=== PATIENT | male | born 1955 | race Caucasian/White ===

== ENCOUNTER 2020-07-28 17:45 | Emergency (ER) | payer OTHER | END 2020-07-28 18:56 | LOC: ER 17:45 | DX: R45.1 Restlessness and agitation (principal); Z20.822 Contact with and (suspected) exposure to COVID-19; R44.3 Hallucinations, unspecified ==

== ENCOUNTER 2020-07-28 19:53 | Inpatient (IN) | payer OTHER, MEDICAID ==
[~2020-07-28] VITALS: Ht 175.3 cm; Wt 82.3 kg
--- NOTE | ~2020-07-28 | EEG ---
[facility] [place] [address] ELECTROENCEPHALOGRAM Name: MANUELA PASCAL Room #: 528A-A ADM IN M.R.#: [id number] Admission: 07/28/20 Attend Phys: Rajesh Rome Discharge: Date of : 55 Report #: [id number] THIS REPORT FOR: //name// DOC #: [id number] Dimitri Colby MD DATE OF SERVICE: 07/31/2020 This patient is being evaluated for the possibility of seizure. EEG was done by placing the electrode by standard 10-20 system of electrode placement. Both referential and sequential montages were used for recording. Background activity in this patient's EEG is about 7 Hz and 30 microvolt. The patient went to sleep that is associated with bilateral slowing and vertex sharp waves. Throughout the record, no active epileptiform activity was noticed. IMPRESSION: This patient's EEG is intermixed with theta range slowing on both sides. That is a nonspecific finding which can occur with encephalopathy, effect of psychotropic medication, dementia. No active seizure activity was noticed. Thank you very much for this referral. Dimitri Colby MD PK/NOO By: [id number] [id number] Dimitri Colby MD /nt
--- NOTE | ~2020-07-28 | HC ---
[facility] [place] [address] CONSULTATION Name: MANUELA PASCAL Room #: 528A-A ADM IN M.R.#: [id number] Admission: 07/28/20 Attend Phys: Chad Charles DO Discharge: Date of : 55 Report #: [id number] THIS REPORT FOR: cc: FAM - Family physician unknown FAM - Family physician unknown Dimitri Colby MD ~ DOC #: [id number] Dimitri Colby MD DATE OF SERVICE: 08/03/2020 HISTORY OF PRESENT ILLNESS: This is a 65-year-old male patient whose consultation was requested by Dr. Charles. The patient is in the behavioral psychiatric unit. He does not provide much history. I talked to Dr. Charles and got some history and he nicely updated me on the patient's history. Then I called the patient's daughter and talked to the nurse also. The daughter says that this patient was diagnosed with an invasive tumor in November. It was apparently a lung tumor. He was given a limited life expectancy for a few months and was recommended chemotherapy and radiation and he did not get any. Apparently, a PET scan was going to be done to see where the metastasis is, but it was never done. This patient started having seizures around that time. According to the daughter, first it was small seizure and then he started having multiple seizures. She said that he was admitted to [facility], but they did not do any imaging studies of the brain. She is pretty adamant that he never had any imaging study of the brain, which would be unusual, but she is pretty sure about that and was pretty adamant and certain that was the case. He has a history of alcohol. He has not drank alcohol daily for some time, but he drinks heavy amount of alcohol on Sunday and Sunday. Apparently, he also started losing memory, some time last few months. REVIEW OF SYSTEMS: I do not have any record in this patient, but he is on Keppra. He apparently had another seizure, the description of the seizure is poor. At one time, he was given thiamine because of thiamine deficiency, but that did not do anything to his memory. He apparently has a lung carcinoma. He has an oncologist, but has not followed his recommendation for chemotherapy and radiation therapy. He has a significant behavioral problem. REVIEW OF SYSTEMS: A 14-point review of system was carried out and this is a relevant 14-point review of systems. PAST MEDICAL HISTORY: Positive for lung carcinoma. FAMILY HISTORY: Unremarkable. SOCIAL HISTORY: He has a heavy history of smoking. PHYSICAL EXAMINATION: His examination was limited because he did not cooperate, [facility] [address] [place] [address] CONSULTATION Name: GWYNMANUELA Room #: 528A-A [facility] IN M.R.#: [id number] Admission: 07/28/20 Attend Phys: Chad Charles DO Discharge: Date of : 55 Report #: [id number] first he wanted me to sit down before he does anything for me, when I did, but he still did not cooperate. Ultimately, he was able to tell me that it is July. He did not know what hospital he is in and could not name the president. Cranial nerve and neuromuscular examination was attempted. His cooperation was very poor, but I do not see any focality there. He did allow me to listen to his heart which looks unremarkable. He does not have any respiratory difficulty. His blood pressure is 141/81, respirations 20, pulse is 124, temperature is 98.9. LABORATORY DATA: His CBC is normal. His last sodium was normal, so was the patient's B12 and TSH. IMPRESSION AND PLAN: By history, the patient is having recurrent seizure. Description of the seizures is poor, but he has been tried on Keppra. I discussed with family that they need to decide how aggressive they want to be in light of his cancer. They want an MRI of the brain to see if there is a metastasis there. If metastasis is there, I think they are going to be inclined towards palliative care rather than the treatment. If metastasis is not there, then they may think about doing some treatment. I think that can be done as I discussed with you. I think we can add Depekote to this patient and closely monitor the platelets and the liver function. Once Depakote level becomes therapeutic, we may give a trial with tapering off Keppra. I will suggest starting the patient on Depekote 500 mg p.o. b.i.d. and building it up depending upon his tolerance and depending upon his blood workup. The daughter is aware of this and daughter has been consulted on virtually everything. Thank you very much for this referral. I spent about 50 minutes of time taking care of this patient today and majority was spent counseling and coordinating including talking to the daughter, psychiatrist, nurses, and reviewing the patient's records. MD MIGUEL Mao/WAQAS By: 0055 Dimitri Colby MD /nestor
--- NOTE | 2020-07-29 01:42 | NUR ---
PT ARRIVED ON UNIT AT APPROX 1850 HRS 07/28/20. WHEN THIS NURSE MADE CONTACT WITH PATIENT HE WAS IN THE DAY ROOM PUTTING THE TV REMOTE IN HIS PANTS. THIS NURSE ASKED THE PT FOR THE REMOTE AND HE BECAME AGITATED. THE REMOTE HAD TO BE TAKEN FROM HIM AND HIS AGITATION ESCALATED. JUST AFTER THIS INCIDENT IT WAS DISCOVERED THAT PT HAD ARRIVED ON THE UNIT WITH HIS CELL PHONE. MALE PEER SAW THAT PT HAD A PHONE AND TRIED TO TAKE IT FROM HIM. BOTH PT'S BEGAN YELLING AND ESCALATING AND SECURITY WAS CALLED. SECURITY ARRIVED AND ORDER RECEIVED FROM DR. LOZANO FOR 15 MG GEODON IM STAT. SECURITY ARRIVED AND PT AGREED TO WALK TO HIS ROOM FOR THE INJECTION. HE LAID DOWN ON HIS BED AND ALLOWED THIS NURSE TO GIVE IM INJECTION TO RIGHT GLUT WITHOUT INCIDENT. PATIENT STAYED IN HIS BED APPROX 10 MIN THEN CAME BACK OUT TO HALLWAY/DAYROOM. SECURITY WAS ABLE TO REMOVE PT'S WALLET FROM HIS BACK WALLET AND IT WAS PLACED WITH HIS PERSONAL ITEMS AND CELL PHONE UNTIL WHICH TIME ITEMS CAN BE CATALOGED. THIS NURSE UNABLE TO DO COMPLETE ADMISSION ASSESSMENT OF PT DUE TO COGNITIVE LIMITATIONS AND PT UNWILLINGNESS TO PARTICIPATE. NO ADVERSE REACTIONS TO GEODON IM INJECTION. PATIENT EVENTUALLY RETIRED TO HIS BED AND HAS SLEPT SINCE THAT TIME. WILL CONTINUE TO MONITOR AND FOLLOW PLAN OF CARE. Q 12 MIN SAFETY CHECKS PER PROTOCOL.
[2020-07-29 07:59] LABS: CHOLESTEROL 208 mg/dL (<200); HDL CHOLESTEROL 56 mg/dL (>40); LDL CHOLESTEROL 127 mg/dL (<100); TC:HDL 3.7 Ratio (Not establshd); TRIGLYCERIDE 128 mg/dL (<150); VLDL 26 mg/dL (<40)
[2020-07-29 08:50] VITALS: BP 121/103
--- NOTE | 2020-07-29 11:25 | NUR ---
Nutrition: New admit [facility] with dementia, behaviorial disturbance. Has been combative per nsg, required Zoran harman noc. RD did not interview due to RN warning of combativeness. No ht/wt-requested as able. Pt consumed 90% of breakfast and then some. Nsg is requesting double portions-will order. 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 On thiamine, HCTZ. Place as low risk with interventions in place.
--- NOTE | 2020-07-29 12:59 | NUR ---
ANGRY TENSE FACIAL EXPRESSION ON INITIAL APPROACH THIS AM-BUT DID EAT LARGE BREAKFAST AND WAS COMPLIENT WITH TAKING AM MEDS-GAIT IS STEADY WITHOUT AWSSISTVE DEVICES. INCREASED LABILITY SHIFT PROGRESSES-FREQUENT EPISODES OF LOUD VERBAL OUTBURSTS AND SWEARING UPSET THAT HE DOESN'T HAVE TV IN ROOM-DELSUIONAL STATING THAT ALL THE PEOPLE HERE ARE HIS COWORKERS AND WE ARE AT "[facility]" DENIES C/O PAIN/DISCOMFORT-DENIES SI/SH.NO SEIZURE ACTIVITY NOTED OR REPORTED
--- NOTE | 2020-07-29 15:56 | NUR ---
BECAME INCREASINGLY AGITATED AT APPROX 1230-SWEARING CONSTANTLY AND BEGAN TO YELL LOUDLY AND POUND FIST ON DOOR AND WALL-UNABLE TO BE VERBALLY REDIRECTED-CONFUSED STATING "I AM SUPPOSED TO BE AT A BIRTH[facility] [employer] [facility]-GET MY DRIVERS LICENSE. RAISED FIST TO MALE PEER-GEODON 10MG GIVEN IM IN RIGHT DELTOID WITH NO PHYSICAL RESISTANCE-YELLING PROFANITY LOUDLY IN DAYROOM.
--- NOTE | 2020-07-29 17:33 | NUR ---
VAISHNAVI and Dr. Vaughan met with the Pt in Dr. Vaughan's office. Pt presented confused and unable to answer any questions. Pt's stap daughter, Hope [phone], was called. Hope was able to provide a brief history on the Pt. Hope confirmed the Pt does not have a DPOA. The Pt has been at [facility] for 2 months. Prior to that Pt lived with Hope for about 11 months. [facility]. While hospitalized Pt had behavioral issues. 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 Dr. Vaughan informed Pt no longer had the capacity to assign a DPOA and would benefit from a guardian. Hope was aware a guardian was needed, and stated she was working on this. VAISHNAVI will continue to follow
--- NOTE | 2020-07-29 17:47 | NUR ---
Vaishnavi was able to talk to ALONZO Melton at [facility] [phone]. Linh stated hermilo Pt has been with them for 2 months. Pt has been having behaviors since placement. Pt yells, curses, throws things, is exit seeking, and not sleeping at night. Pt has destroyed his apartment when upset. Linh reported the Pt was at [facility] for more than two weeks. Linh reported initiall [facility] was not going to keep the Pt, but the Pt had a sizure while there and this is when he was admitted. Linh stated they have not given notice on the Pt yet. Linh requested updates. VAISHNAVI will continue to follow
--- NOTE | 2020-07-29 18:43 | NUR ---
HAS REMAINED RESTLESS,PACING -AT DESK FREQUENTLY WITH VARIOUS REQUESTS FOR HIS CAR KEYS,WALLET,DRIVERS LICENSE,ETC-BEGINS TO SWEAR LOUDLY WITH ATTEMPTS TO REORIENT/REDIRECT.MULTIPLE ATTEMPTS MADE TO ASSIST IN PLACING A PHONE CALL WHICH WAS NO LONGER IN SERVICE STATING IT WAS HIS PARENTS NUMBER-DID TAKE RISPERDAL 1 MG PO AT 1500
[2020-07-29 19:37] VITALS: BP 136/89
--- NOTE | 2020-07-29 20:53 | H ---
[facility] [place] [address] [place] [address] HISTORY AND PHYSICAL Name: MANUELA PASCAL Room #: 528A-A ADM IN M.R.#: [id number] Admission: 07/28/20 Attend Phys: Fiorella Charles DO Discharge: Date of : 55 Report #: [id number] THIS REPORT FOR: cc: FAM - Family physician unknown FAM - Family physician unknown Fiorella Charles DO ~ DOC #: [id number] FIORELLA Charles DO DATE OF SERVICE: 07/29/2020 INPATIENT PSYCHIATRIC EVALUATION ATTENDING PSYCHIATRIST: Fiorella Charles. MEDICAL CONSULTANTS: Radha Martínez and Jonathan Mckenna M.D. and his hospitalist team. REASON FOR ADMISSION: Dementia with behavioral disturbance. CHIEF COMPLAINT: Unspecified. HISTORY OF PRESENT ILLNESS: This is a 65-year-old male sent to us from [facility]. It looks like he was briefly on the medical service there. The admit date looking like 07/15/2020. Apparently, the patient had had 10 seizures within a short period of time and that resulted in his medical admission to [facility]. The patient does reside at a nursing facility. It turns out [facility]. The patient has had some exit seeking and assaultive behaviors including eloping at 3:00 a.m. in the morning and being found a couple hours later by his daughter who has had quite a terrible course with discovery of a mass on his lungs in 12/2019 and diagnosis of small cell lung cancer. The patient has refused radiation and chemotherapy for this. The patient has had cognitive problems dating back to sometime in 2019. He has been at [facility] since May of this year. The records I did get on him, they are reporting agitation, confusion, poor judgment, needs psychiatric medication adjustment. DISCHARGE MEDICATIONS: From [facility] were aspirin 81 mg daily, donepezil 5 mg p.o. daily, Keppra 1000 mg oral twice daily, lisinopril/hydrochlorothiazide 20/12.5 mg oral daily, memantine 5 mg twice a day, risperidone 0.5 mg BID, thiamine 200 mg oral daily, trazodone p.r.n., no dose is listed, and venlafaxine XR 75 mg oral daily. Unfortunately, I really do not have any records of his hospital course at [facility], I am confirming his admit date was 07/13/2020. LABORATORY DATA: Lab work here at [facility], triglycerides 128, [address] [address] HISTORY AND PHYSICAL Name: MANUELA PASCAL Room #: 528A-A ADM IN M.R.#: [id number] Admission: 07/28/20 Attend Phys: Fiorella Charles DO Discharge: Date of : 55 Report #: [id number] cholesterol 208, LDL 127, HDL 56, B12 level 551, TSH normal at 1.729. A1c is pending. COVID-19 serology is negative. A little more info from the [facility]; he has been having hallucinations as well. ALLERGIES: No known allergies. REVIEW OF SYSTEMS: From the [facility]: CONSTITUTIONAL: Denies fever, chills, malaise, or unexplained weight change. EYES: Denies eye pain, visual change, or discharge. ENT: Denies hearing changes, ear drainage, ear infections, ear pain, neck pain or neck stiffness. RESPIRATORY: Denies cough, shortness of breath, hemoptysis or respiratory distress. HEART: Denies chest pain, chest pain with exertion, or edema. GASTROINTESTINAL: Denies abdominal pain, nausea, vomiting or diarrhea. GENITOURINARY: Denies, burning, frequency or dysuria. MUSCULOSKELETAL: Denies back pain, joint pain, muscle weakness or myalgias. SKIN: Denies rash. NEUROLOGIC: Denies weakness, headaches or loss of consciousness. Otherwise, 10-point review of systems was negative. Weight is not available. We will go ahead and discontinue donepezil due to advancement of his dementia and with complicating cancer diagnosis, we will leave him on memantine for now. I increased his Risperdal from 1 mg b.i.d. to 1 mg 3 times a day. Continue thiamine, continue memantine 5 mg daily. Continue lisinopril 20 mg daily, hydrochlorothiazide 12.5 mg daily, aspirin 81 mg daily, Keppra 1000 mg b.i.d. He already has received IM trazodone. SPECIAL NOTE: The patient was assaultive towards a peer, opened the door to the nurses' station, walked in and security was called. He then slept 8 hours, which is a good thing. He is eating well. PHYSICAL EXAMINATION: GENERAL: Very shankar unkempt waters, slight ataxia with gait. MENTAL STATUS EXAMINATION: This is a well-developed, older than age-appearing male. Attention limited. Concentration impaired. Speech, normal rate. Thought process linear at times and then will start cursing about things, but has been redirectable, not physically assaultive today. Denied suicidal or homicidal ideations, auditory, visual, or tactile hallucinations. Memory known to be impaired, not formally tested. Insight is impaired, judgment is impaired. Fund of knowledge well below average. FORMULATION: A 65-year-old male sent over after inpatient stay due to uncontrolled seizures at [facility]. The patient is in Memory Care and currently has had a behavioral disturbance. [facility] [address] [place] [address] HISTORY AND PHYSICAL Name: MANUELA PASCAL Room #: 528A-A ADM IN M.R.#: [id number] Admission: 07/28/20 Attend Phys: Fiorella Charles DO Discharge: Date of : 55 Report #: [id number] PLAN: At this time, we will go ahead and titrate risperidone down to 1 mg 3 times a day. I have some concerns about the Keppra on potentiating psychosis behavior if we can get this under control. I likely need to speak with our neurologist about substitute for a different anticonvulsant. This patient's clinical situation is one that is terminal and the goal is just to get some behavioral stability, so he can return to Memory Care. I would recommend hospice service to be added on. DIAGNOSES: Major neurocognitive disorder due to multiple etiologies including brain tumor, small cell lung cancer by history, seizure disorder. PLAN: He is admitted to Geriatric Psychiatry. We will keep him under parens patriae, evaluate, stabilize, and obtain collateral. ESTIMATED LENGTH OF STAY: 10-14 days. Time spent on this case including conversation with his daughter, Hope, reviewing records, coordination of care and management with the patient is over 60 minutes. DO FORREST StarrK/PRAVEEN/IQB <ELECTRONICALLY SIGNED> By: Fiorella Charles DO 07/29/202052 [id number] Fiorella Charles, /nt
[2020-07-30 01:06] LABS: GLYCOHEMOGLOBIN (HGB A1C) 5.8 % (4.8-5.6)
[2020-07-30 05:27] LABS: ABSOLUTE NEUTROPHILS 4.6 thou/uL (1.4-8.2); EOSINOPHILS 4.8 % (0.0-3.0); HEMOGLOBIN 12.4 gm/dL (14.0-18.0); LYMPHOCYTES 15.3 % (24.0-44.0); MCH 30.5 pg (26.0-34.0); MCHC 33.6 g/dL (28.0-37.0); MCV 90.9 fL (80.0-100.0); MONOCYTES 8.7 % (1.0-8.0); PLATELET COUNT 224 thou/uL (150-400); POLYS 70.2 % (36.0-66.0); RBC 4.07 mil/uL (4.50-6.00); RDW 14.8 % (10.5-14.5); WBC 6.6 thou/uL (4.0-11.0)
[2020-07-30 05:49] LABS: CALCIUM 8.6 mg/dL (8.5-10.1); CREATININE 1.2 mg/dL (0.7-1.3); MAGNESIUM 2.1 mg/dL (1.8-2.4); POTASSIUM 4.9 mmol/L (3.5-5.1)
--- NOTE | 2020-07-30 07:01 | NUR ---
PRIOR TO SHIFT REPORT OBSERVED PT PACING IN FRONT OF NURSING STATION CUSSING. 07-29-18 CARE TRANSFERRED 1900 SPEAKING WITH PT PT BECAME CALMER AND WAS REDIRECTED TO DAY ROOM. LATER PT AAOX1, VSS, RR EVEN AND NONLABORED ON RA, PT DENIES PAIN AND SI/HI. OBSERVED SEVERAL MOOD SWINGS THROUGH SHIFT, PT WAS EASILY REDIRECTED. ZERO S/S OF ACUTE DISTRESS NOTED, PT WILL CONTINUE TO BE MONITOR PER [facility] PROTOCOL.
[2020-07-30 07:50] VITALS: BP 160/92
[2020-07-30 09:59] VITALS: BP 160/92
--- NOTE | 2020-07-30 13:04 | NUR ---
Alert and orientated to name only. Coherent speech at times, other times using profanity and becomes frustrated. Denies SI/HI. Breath sounds clear. Reg HR auscultated. Color pink with brisk capillary refill and palpable peripheral pulses. No edema. Independent with voiding but at times needs to be directed to toilet. Active bowel sounds over soft, flat abdomen. Ambulating t/o unit most of day, redirectable. No s/o distress. Eating double portions and asking for more.
[2020-07-30 19:52] VITALS: BP 121/88
[2020-07-31 04:53] VITALS: BP 121/88
--- NOTE | 2020-07-31 05:04 | NUR ---
07/30/20- Assumed care from day nurse at 1900, Pt is alert to self pleasant, wanders, Easily directed, paces, did sleep a little last night. Will continue to monitor remainder of shift.
[2020-07-31 07:34] VITALS: BP 130/87
[2020-07-31 10:47] VITALS: BP 130/87
[2020-07-31 21:00] VITALS: BP 130/87
--- NOTE | 2020-08-01 06:31 | NUR ---
Assumed care on 07/31/20 @ 19:15, A&Ox2, confusion noted. Slept in bed @ HS, then awoken in the night and was awake for the rest of the night. HRRR, Lungs CTA, reports SI once in a while, denies HI, Denies hallucinations. On seizure precautions with the rails of his bed wrapped in blankets for padding.
[2020-08-01 09:09] VITALS: BP 152/94
--- NOTE | 2020-08-01 13:55 | NUR ---
SO FAR THIS SHIFT HAS BEEN COOPERATIVE AND CALM. INTERACTS WITH PEERS AND STAFF IN AN APPROPRIATE MANNER-ORIENTED TO NAME ONLY. IS ABLE TO COMPLETE TOILETING,FEEDING SELF WITH QUEING -DOES NEED DIRECTION TO LOCATE ROOM. BRIEF EPISODE OF PACING IN HALLWAYS AFTER LUNCH AND WOULD PICK THINGGS "NAPKINS,PLASTIC SILVER WEAR,) OF OF TABLE IN DAYROOM. HAS NOT BEEN NOTED TO ENTER OTHER ROOMS SO FAR THIS SHIFT. DENIES PAIN-COMPLIENT WITH MEDS.GAIT STEADY WITHOUT ASSISTVE DEVICES
[2020-08-01 19:11] VITALS: BP 124/83
--- NOTE | 2020-08-02 00:39 | NUR ---
ASSUMED CARE OF PATIENT AT 1900. NO S/S OF DISTRESS, UP IN DAY ROOM. AMBULATES INDEPENDENTLY WITH STEADY GAIT. DIFFICULTY GOING TO SLEEP, FOLLOWS ANOTHER CONFUSED PATIENT AROUND AND BOTH ARE INTRUSIVE TOWARDS OTHER PATIENTS. EASILY REDIRECTABLE, VERY FORGETFUL, BUT PLEASANTLY SO. PROVIDED PRNS FOR SLEEP AND ANXIETY WHICH SEEM TO BE EFFECTIVE CURRENTLY, PATIENT IS LYING DOWN IN BED. WILL CONTINUE TO MONITOR.
[2020-08-02 08:47] VITALS: BP 149/89
--- NOTE | 2020-08-02 08:56 | NUR ---
VAISHNAVI faxed updates to [facility] on 08/01/20. VAISHNAVI team will remain available.
--- NOTE | 2020-08-02 15:34 | NUR ---
PT ALERT AND ORIENTED TIMES THREE. VSS, PT DENIES PAIN/SOA/SI/HI/AH/VH. PT TOLERATES MEDS AND MEALS. PT ATTENDED ONE GROUP THIS SHIFT. PT INTERACTS WELL WITH STAFF, BUT CAN BE INTRUSIVE WITH PEERS. WILL CONTINUE TO MONITOR.
--- NOTE | 2020-08-02 16:20 | NUR ---
VAISHNAVI and Dr. Charles met with Hope via telephone to discuss pt's care plan. Hope is open to hospice and will contact the facility to find out what kaitlin Mccray has worked with. SW team will remain available.
[2020-08-02 20:35] VITALS: BP 129/78
--- NOTE | 2020-08-03 02:30 | NUR ---
PATIENT CARE ASSUMED AT APPROX 1900. PATIENT WANDERING, CONFUSED. EASILY REDIRECTED. GIVEN PRN TRAZODONE FOR SLEEP WITH OTHER HS MEDICATIONS. TAKEN WHOLE WITHOUT DIFFICULTY. NO S/S OF DISTRESS OR DISCOMFORT. CURRENTLY LYING IN BED APPEARING TO BE ASLEEP. WILL CONTINUE TO MONITOR.
[2020-08-03 09:43] VITALS: BP 121/81
--- NOTE | 2020-08-03 15:41 | NUR ---
ALERTED BY CLINICAL IMMUNOLOGIST AT APPROX 0750 THAT MANUELA "WAS NOT ACTING RIGHT" NOTED TO BE SITTING IN RECLINER IN DAYROOM -EYE CLOSED-SKIN WARM/DRY-SLIGHTLY FLUSHED-WILL OPEN EYES TO VERBAL COMMANDS BUT NO VOCALIZATION.GURGLING IN BACK OF THROAT RESPIRATIONS DEEP/REGULAR. O2 SAT 98 PERCENT. BS CHECKED AND IS 118. BLOOD PRESSURE 120/82-BNZRZ-[id number] BUT SYMMETRICAL. METAL FILER EQUAL BUT WEAK.WILL OCCASSIONALLY HAVE GROSS TREMOR AND UPPER EXTREMETY AND SOME TWITCHING EXTREMETIES. PLACED BACK IN BED WITH SIDE RAILS PER [facility] PROTOCOL DR. GARCIA CONTACTED X2 WITH ABOVE AND ORDERS RECEIVED FOR UROLOGY CONSULT-AFTER APPROX 10 MINUTES DOES OPEN EYES AND WAVE TO STAFF-DROOLING COPIOUS AMOUNTS THROUGHOUT ENTIRE EPISODE, SPEECH INITIALLY SLURRED STATES HE HAS NO RECALL OF AM BUT DENIES CURRENT PAIN/DISCOMFORT. DCONTINUES TO HAVE GURGLING,CONGESTION IN THROAT BUT IS ABLE TO COUGH AND SPIT SMALL AMOUNTS OF THICK WHITE PHLEGM-KEPPRA GIVEN BUT ADDITIONAL AM MEDS HELD UNTIL AFTER SWALLOW EVAL D/T POSSIBLE ASPIRATION.
[2020-08-03 19:30] VITALS: BP 115/88
--- NOTE | 2020-08-04 01:27 | NUR ---
PATIENT CARE ASSUMED AT APPROX 1900. PATIENT CALM AND COOPERATIVE, A&OX SELF ONLY. SEEMS CONFUSED AT TIMES AND LUCID AT TIMES. WHEN LUCID, HE MAKES SARCASTIC JOKES AND STATEMENTS NOT APPEARING TO BE RELATED TO WHAT IS GOING ON AROUND HIM. HE RECIEVED TRAZADONE FOR SLEEP AND WAS SLEEPING WHEN ANOTHER PATIENT WANDERED IN HIS ROOM TO WAKE HIM UP. MR. PASCAL WAS CONFUSED ABOUT BEING WOKEN UP AND IS CURRENTLY SITTING IN THE DAY AREA. WILL CONTINUE TO MONITOR.
--- NOTE | 2020-08-04 10:20 | EKG ---
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
[2020-08-04 10:42] VITALS: BP 122/85
--- NOTE | 2020-08-04 10:58 | NUR ---
Treatment team meeting this am. Plans are to dc with hospice likely tomorrow. Pt had video swallow and diet changed to mech soft.
--- NOTE | 2020-08-04 16:55 | NUR ---
VAISHNAVI, , and Dr. Cardona participated in a phone call to the Pt's daughter, Hope. A update was given on the Pt Dr. Vaughan and Dr. Dickson recommended hospice for the Pt. Alpesh stated she would like to look at hospice houses first and if Pt not accepted she is in agreement that Pt going back to [facility] with hospice.
--- NOTE | 2020-08-04 17:01 | NUR ---
PT ALERT TO SELF ONLY. VSS. PT DENIES PAIN/SOA. PT TOLEATES MEDS AND MEALS. DIET CHANGED TODAY AFTER VIDEO SWALLOW. PT ATTENDED GROUPS TODAY. PT INTERACTS WELL WITH STAFF AND PEERS. PT DAUGHTER HERE THIS AFTERNOON TO VISIT. PT HAD HOSPICE EVALUATION TODAY WILL REASSESS TOMORROW. WILL CONTINUE MONITOR.
--- NOTE | 2020-08-04 17:02 | NUR ---
VAISHNAVI sent referrals to [facility] and [facility]. VAISHNAVI spoke with Yenni from [facility], , concerning admission. Yenni stated she wants to get an update tomorrow and reconsider. Kandice from [facility] came up and completed and in- person evaluation. Kandice stated she will reassess and have a decision tomorrow. VAISHNAVI will continue to follow.
--- NOTE | 2020-08-04 17:10 | NUR ---
SW spoke with ALONZO Melton at [facility]. Linh informed they are unable to accept the Pt back due to behaviors and Pt aspirating.
[2020-08-04 20:15] VITALS: BP 88/57
--- NOTE | 2020-08-05 04:58 | NUR ---
Assumed care on 08/04/20 @ 19:15, new orders for nectar thick liquids and soft diet. Seizure precaution and [place] scale of 70, high fall risk. Most of meds have been D/C, and sublingual pain medication available if required. Trazadone 50 taken PRN @ HS for insomnia. Wants to ambulate independently, must be reminded to walk with staff. Confused and needs orientation with toileting and ADLs. Went to sleep @ HS, then woke up, spend the remainder of the NOC awake.
[2020-08-05 08:44] VITALS: BP 121/77
[2020-08-05 16:35] LABS: CALCIUM 8.5 mg/dL (8.5-10.1); CREATININE 1.5 mg/dL (0.7-1.3); POTASSIUM 4.8 mmol/L (3.5-5.1)
--- NOTE | 2020-08-05 17:38 | NUR ---
Pt decline by [facility] and hospice for hospice house.
--- NOTE | 2020-08-05 17:39 | NUR ---
VAISHNAVI spoke with Hope concerning Pt's progress. Hope was happy to hear that Pt was up walking and laughing today. VAISHNAVI talked to Hope about placement. VAISHNAVI informed [facility] will not accept the Pt back. Hope was aware of this. She did not have any facilities that she wanted a referral sent to. oHpe stated any facility was okay and that she would also look at places for the Pt. VAISHNAVI will continue to follow
--- NOTE | 2020-08-05 17:42 | NUR ---
[facility]. The screening was completed. Pt is Medicaid pending. Referrals were sent to the following facilities: [facility] VAISHNAVI will continue to follow
--- NOTE | 2020-08-05 19:46 | NUR ---
Alert and orientated to name only. Denies SI/HI. Some coherent speech. Most of day happy and interactive but had two outbursts of yelling and profanity in dining room around dinner time. Redirected to room where he calmed down. Cooperative with cares, took meds whole. Breath sounds with slight expiratory wheeze, good aeration without s/o resp distress. Reg HR ausultated. Color pink with brisk capillary refill and palpable peripheral pulses. Independent with voiding but needs to be directed to his room/toilet. Active bowel sounds over soft, flat abdomen. Ambulates with reg, steady gait. Returned phone call to Hospice, message left. Plan on MRI tomorrow, screening form received from radiology.
[2020-08-05 19:54] VITALS: BP 132/74
--- NOTE | 2020-08-06 04:18 | NUR ---
ASSUMED CARE FROM DAY SHIFT PT WALKING AROUND UNIT AND [id number] TOUCHING AND WALKING . AGITATED AND AGRESSIVE WHEN ATTEMPTING TO RE-DIRECT .PT ALSO WALKING IN OTHERS PATIENTS ROOM. CALLED MANUEL DENIS ORDER RECIEVED FOR CORRIE CAMERON. MEDICATION . PT SLEPT ONLY 2 HOURS, THEN BACK TO PACING AND WALKING INTO OTHER PATINETS ROOMS AND IS VERY LABILE.CALL PLACED TO MANUEL DENIS DUE PT AGRESSIVE BEHAVIOR WHEN ATTEMPTING TO RE-DIRECT TO ROOM AND NOT TO TOUCH OTHER PATIENTS IN DAY ROOM. IM ATIVAN GIVEN, STILL AFTER 45 MINS PT SARA PAYNE TO PACE THE HALLWAYS AND DAYROOM . LESS AGREESIVE AT THIS TIME.
[2020-08-06 09:59] VITALS: BP 122/82
--- NOTE | 2020-08-06 13:12 | NUR ---
Alert and orientated to name only. Denied SI/HI. Very active this AM, ambulating in halls and refusing to wear shirt. Reportedly was up most of the night. Sat down for breakfast and fell asleep, difficult to wake up. Unable to give AM medication. customer technical services manager here for EEG. Assisted to with 2 staff assist, woke up and then was able to transfer to bed independently. Took meds whole in nectar thick fluid. Slept through EEG administration. Went to MRI on cart and reportedly cooperative t/o scan. Ambulating without difficulty upon return. Briefly agitated using profanity looking for wallet. Later very pleasant and wanting to talk with daughter on phone. Breath sounds clear. Reg HR auscultated. Color pink with brisk capillary refill and palpable peripheral pulses. Active bowel sounds over soft, rounded abdomen Independent with voiding, yellow urine per toilet.
[2020-08-06 15:00] VITALS: BP 124/76
--- NOTE | 2020-08-06 17:13 | NUR ---
Recieved a message from Whit from [facility]. Pt has been accepted at [facility]. SW will follow up.
[2020-08-06 19:30] VITALS: BP 147/83
[2020-08-06 19:38] VITALS: BP 147/83
--- NOTE | 2020-08-07 03:49 | NUR ---
Assumed care on 08/06/20 @ 19:15, ambulating throughout the day room and hallways with a fairly steady gait. Goes into peers rooms, and has to be redirected out of those bedrooms. Reoriented to his own room, and denies understanding that his name is on the door as a self identifier of his room. A&Ox1, responds to own name, but does not state his name. Takes meds crushed in applesauce with nectar thick liquid. One time order for Lorazepam 1mg P.O. which he accepted @ 22:05 and finally started to calm down by about 23:15. Seated in ally chair in the day room, sleeping then transferred to his bed. Bed in low position, bed alarm set. Will continue to monitor for safety and comfort as per unit protocol.
--- NOTE | 2020-08-07 11:34 | NUR ---
Up ambulating in halls without s/o distress. Happy with confused speech. Orientated to name only. Occassionally interacting with peers. Very forgetful. Denies SI/HI. Breath sounds clear. Reg HR auscultated. Color pink with brisk capillary refill and palpable peripheral pulses. No edema noted. Independent with voiding. Active bowel sounds over soft, rounded abdomen. No documented BM since 08/03/20, MOM given per PRN order. [place] rash over face with circular lesion behind ear. Clear thick drainage from nose. Dr. Yessi mendez on unit, notified. Currently laying on bed without s/o distress.
--- NOTE | 2020-08-08 06:05 | NUR ---
08-07-20 CARE TRANSFERRED 1899. LATER PT AAOX1, VSS, RR EVEN AND NONLABORED ON RA. PT DENIES SI/HI AND PAIN. PT HAS BEEN EASILY REDIRECTED, BUT HAS HAD MULTIPLY OUTBUST YELLING. ZERO S/S OF ACUTE DISTRESS NOTED, PT WILL CONTNUE TO BE MONITOR PER [facility] PROTOCOL.
[2020-08-08 07:49] VITALS: BP 113/84
[2020-08-08 09:46] VITALS: BP 113/84
--- NOTE | 2020-08-08 10:33 | NUR ---
1030 RESUMMED CARE FROM OVERNIGHT SHIFT THIS AM, PATIENT SITTING IN DAYROOM QUIET. PATIENT ATE BREAKFAST TOOK MEDICATION WITHOUT INCIDENCE, PATIENT CAME INTO NURSES STATION. WE HAD TO REDIRECT PATIENT THAT THIS IS THE NURSES STATION AND HE CAN'T COME IN HERE. PATIENT DENIES SI/HI/AH/VH AT PRESENT PATIENT ABDOMEN SOFT BOWEL SOUNDS PRESENT. PATIENT LUNGS CLEAR PATIENT SOMETIMES WILL CUSS ABOUT THINGS; BUT THEN APOLOGOZES. PATIENT ENCOURAGED TO PARTICIPATE IN GROUPS. PATIENT ORIENTED TO SELF AND PLACE HE SOMETIMES HAS CONFUSION. WILL CONTINUE TO MONITOR PATIENT FOR SAFETY AND BEHAVIORS.
[2020-08-08 20:30] VITALS: BP 140/92
--- NOTE | 2020-08-08 21:22 | NUR ---
ASSUMED CARE OF PATIENT AT 1900. PATIENT ANXIOUS AND PUTTING HANDS ON OTHER PATIENTS, ONE WHOM HE BELEIVES IS HIS MOTHER. DIFFICULT TO REDIRECT. OTHER TIMES YELLING AT STAFF AND CURSING, REQUESTING TO SPEAK TO "CALL THE PIECE HAND". SECURITY CALLED UP TO SPEAK TO PATIENT, WHO THEN DID NOT REMEMBER WHY HE WANTED TO SPEAK TO THEM. LATER YELLING AND CURSING AND UNCONSOLABLE, CLEARLY AGITATED AND DIFFICULT TO REDIRECT. GIVEN PRNS TO HELP WITH PAIN AND AGITATION/ANXIETY. CURRENTLY LYING IN BED, NO S/S OF DISTRESS. WILL CONTINUE TO MONITOR.
[2020-08-09 09:12] LABS: HEMATOCRIT 42.3 % (42.0-52.0); HEMOGLOBIN 13.6 gm/dL (14.0-18.0); MCH 29.1 pg (26.0-34.0); MCHC 32.2 g/dL (28.0-37.0); MCV 90.6 fL (80.0-100.0); RBC 4.67 mil/uL (4.50-6.00); RDW 14.6 % (10.5-14.5); WBC 6.4 thou/uL (4.0-11.0)
[2020-08-09 09:26] LABS: ALBUMIN 3.1 g/dL (3.4-5.0); CALCIUM 8.8 mg/dL (8.5-10.1); CREATININE 1.2 mg/dL (0.7-1.3); POTASSIUM 4.4 mmol/L (3.5-5.1); TOTAL BILIRUBIN 0.3 mg/dL (0.2-1.0); TOTAL PROTEIN 6.9 g/dL (6.4-8.2)
[2020-08-09 09:28] LABS: APTT 25.1 Seconds (24.5-32.8); INR 0.96; PROTIME 10.5 Seconds (10.5-12.1)
[2020-08-09 09:37] VITALS: BP 103/74
--- NOTE | 2020-08-09 14:38 | NUR ---
ASSUMED PT CARE THIS AM. PT A&OX1, COOPERATIVE WITH STAFF. PATIENT HAS NO COMPLAINTS OF PAIN WHEN ASSESSED. PATIENT TOOK ALL MEDICATIONS WITHOUT ISSUE THIS AM. PATIENT TOLERATING DIET WELL. PATIENT REMAINS CONTINENT. BLADDER SCANNED PATIENT AFTER PATIENT REPORTED DIFFICULTY VOIDING. PATIENT WAS ABLE TO VOID AFTER STRAINING. BLADDER SCAN SHOWED >350 ML. PHYSICIAN MADE AWARE AND ADVISED HE WOULD START THE PATIENT ON FLOMAX.
--- NOTE | 2020-08-09 17:24 | NUR ---
[facility] care centers of [place] decline due to Pt being Mediciad pending. VAISHNAVI spokw with Whit at [place] concenring admission. Hwit stated she needed to get further approval due to Pt not having a DPOA and guardianship pending. Whit stated she would call VAISHNAVI back concerning the matter.
[2020-08-09 19:44] VITALS: BP 120/84
[2020-08-09 20:06] LABS: SYPHILIS AB Non Reactive (Non Reactive)
--- NOTE | 2020-08-09 21:33 | NUR ---
ASSUMED CARE OF PATIENT AT 1900. PATIENT HAS BEEN ANXIOUS AND AGITATED, CHECKING EXIT DOORS AND OTHER LOCKED DOORS ON THE UNIT. HE HAS BEEN ASKING FOR HIS MOM AND DAUGHTER. HE HAS ALSO BEEN ASKING FOR HIS CAR AND BELONGINGS. HAS BEEN DIFFICULT TO REDIRECT AT TIMES. GIVEN PRN LORAZEPAM 0.5MG FOR ANXIETY PER [facility] ORDERS. PATIENT CURSES AT STAFF DURING SOME OF HIS OUTBURSTS AND REFERRED TO THIS WATER TAXI DRIVER AND A PPAP COORDINATOR "HEY BITCH" OR "THAT BITCH". PATIENT REDIRECTED TO THE PROPER NAMES OF THE WATER TAXI DRIVER AND PPAP COORDINATOR. PROVIDED PRN TRAZADONE FOR SLEEP WELL. WILL CONTINUE TO MONITOR FOR EFFECTIVENESS.
[2020-08-10 10:29] VITALS: BP 117/94
--- NOTE | 2020-08-10 12:00 | NUR ---
Sleeping soundly upon assessment. Woke up without difficulty but gait unstable, placed in WC. Alert to name only. Denies SI/HI. Breath sounds clear. Reg HR auscultated. Color pink with brisk capillary refill and palpable peripheral pulses. Pt. declines to void at this time. Active bowel sounds over soft, flat abdomen, bladder not palpable. Sleeping soundly at this time in room.
[2020-08-10 20:33] VITALS: BP 118/78
--- NOTE | 2020-08-11 07:45 | NUR ---
ASSUMED CARE ON 08/10/20 @ 1900, AGITATED AND YELLING OBSCENITIES. TRAZADONE PROVIDED FOR SLEEP. ATIVAN AND MORPHINE PROVIDED FOR AGITATION, ANXIETY AND PAIN. SLEPT VERY LITTLE IN THE BLANQUITA CHAIR IN THE DAY ROOM. CHAIR ALARM USED.
--- NOTE | 2020-08-11 10:33 | NUR ---
Followup: eating 90-100% of modified diet for dysphagia. ST continues to follow. Continue ensure pudding. Low nutrition risk
[2020-08-11 10:38] VITALS: BP 104/70
[2020-08-11 11:28] VITALS: BP 104/70
--- NOTE | 2020-08-11 13:16 | NUR ---
VAISHNAVI recieved a call from Whit at [facility]. Whit informed they have gotten approval for admission with a pending guardianship. Whit stated she was able to speak with the Pt's daughter, Hope concerning the guardianship. D/C is scheduled for 08/12/2020 @ 1030. A hospice referral was faxed to [facility].
--- NOTE | 2020-08-11 13:29 | NUR ---
1329 RESUMMED CARE FROM OVERNIGHT SHIFT THIS AM, PATIENT IN DAY ROOM LYING QUIET IN BLANQUITA CHAIR. PATIENT ATE BREAKFAST TOOK MEDICATION WITHOUT INCIDENCE. PATIENT ALERT TO SELF ONLY PATIENT UNABLE TO TELL ME ABOUT SI/HI/AH/VH AT PRESENT DUE TO COGNITON DO. PATIENTS ABDOMEN SOFT BOWEL SOUNDS PRESENT PATIENTS LUNGS CLEAR. I BLADDER SCANNED PATIENT HE HAD 486 CC OF URINE IN HIS BLADDER. I STRAIGHT CATHED PATIENT AND GOT 541 CC OF URINE OUT 5 CC LEFT PATIENT WAS SOMEWHAT COMBATIVE FOR PROCEDURE. PATIENT IS CALM RESTING QUIET IN BLNAQUITA CHAIR. PATIENT HAS NOT DISPLAYED ANY BEHAVIORS THIS SHIFT WILL CONTINUE TO MONITOR PATIENT FOR SAFETY AND BEHAVIORS.
[2020-08-11 19:18] VITALS: BP 109/63
--- NOTE | 2020-08-12 04:56 | NUR ---
08-12-20 CARE TRANSFERRED 0 OBSERVED PT SITTING IN RECLINER IN DAY ROOM, THEN PT STOOD UP AND STARTED YELLING PROFANITIES, PT PRESENTS ANXIOUS AND PRN MEDICATION ADMIN. LATER PT PRESENTS CALM AAOX1, VSS, RR EVEN AND NONLABORED ON RA, PT LUNGS DIMINISHED, WHEEZY R/T SMALL CELL LUNG CA, HT RR, ABD SOFT AND ACTIVE. PT REPORTS PAIN AND SCORES 5 ON 0-10 SCALE, PT VERY RESTLESS AND TAKEN TO BATHROOM, NO URINE. DURING MEDICATION ADMIN PT HAD NO DIFFICULTIES TAKING MEDICATION WITH THICKEN LIQUIDS, 20 MINS LATER PT BLADDER SCANNED 767ML, PT TOLERATED STRAIGHTED WELL 775ML OF CLEAR YELLOW URINE, NO SEDIUMENT OR FOUL ODOR. PT WANTED TO COME BACK TO DAY ROOM, PT WAS REPOSITION FROM BED TO RECLINER. OF NOTE, PT ATE 100% HS SNACK. PT WILL CONTINUE TO BE MONITOR PER [facility] PROTOCOL.
[2020-08-12] MEDS ORDERED: FLOMAX0.4 MG PO (09:00)
[2020-08-12] MEDS ORDERED: DEPAKOTE500 MG PO (09:01)
[2020-08-12] MEDS ORDERED: DEPAKOTE125 MG PO (09:02)
[2020-08-12] MEDS ORDERED: OLANZAPINE2.5 MG PO (09:03)
--- NOTE | 2020-08-12 09:56 | NUR ---
Alert and impulsive this AM attempting to stand, unsteady gait. Occassionally calling out. AM meds given early with Ativan in preparation of straight cath and discharge. Able to state name. Denies SI/HI. Breath sounds clear. Reg HR auscultated. Color pink with brisk capillary refill and palpable peripheral pulses. No edema. Brief with small amt yellow urine. Active bowel sounds over soft, rounded abdomen. Bladder scan done--507 cc. Straight cath done, retrieved 525 cc of clear yellow urine. Report called to Doris Mata at [facility]. Spoke with Hope Inman (daughter) via phone. Agrees with transfer. States she has mtg with his new take up operator this afternoon to sign paperwork for DPOA/guardianship. Also gives consent to sign Medicare/Medicaid form. States she will be meeting Acosta at [facility].
[2020-08-12 10:03] VITALS: BP 125/78
--- NOTE | 2020-08-13 22:38 | D ---
[facility] [place] [address] [place] [address] DISCHARGE SUMMARY Name: MANUELA PASCAL Room #: 528A-A [facility] IN M.R.#: [id number] Admission: 07/28/20 Attend Phys: Fiorella Charles DO Discharge: 08/12/20 Date of : 55 Report #: [id number] THIS REPORT FOR: cc: FAM - Family physician unknown FAM - Family physician unknown Fiorella Charles DO ~ DOC #: [id number] FIORELLA Charles DO DATE OF SERVICE: 08/12/2020 INPATIENT PSYCHIATRIC DISCHARGE SUMMARY ATTENDING PSYCHIATRIST: Fiorella Charles DO STATE TESTED NURSING ASSISTANT: Ramiro Cardona MD DISCHARGE DIAGNOSES: Major neurocognitive disorder due to multiple etiologies with behavioral disturbance. Urinary retention. 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 ADDITIONAL MORBIDITIES: Acute on chronic renal failure, dysphagia with aspiration concern, history of tobaccoism, history of alcoholism, chronic bilateral Dupuytren hand contracture. The patient is discharged to [facility]. Psychiatric and medical care to be provided by receiving facility. DISCHARGE MEDICATIONS: As follows: Tamsulosin 0.4 mg oral daily for urinary retention, Depakote DR 625 mg oral twice daily for seizures and mood stabilization, olanzapine 2.5 mg oral twice daily for psychosis. DISCHARGE DIET: The patient is on a special diet with nectar-thick liquids, mechanical ground. ACTIVITY LEVEL: He is up with assist only. Recommend daily skin checks. Hospice consultation encouraged. LABORATORY DATA: The patient's most recent laboratories prior to discharge: Hematology on 08/09: H and H 13.6 and 40.3, white count 6.4, platelet count 238. Labs from 08/09: PT 10.5, INR 0.96, APTT 25.1. Chemistry: Sodium 140, potassium 4.4, chloride 103, bicarb 32, anion gap 5. BUN 23, creatinine 1.2. Estimated GFR 61. Glucose 118, calcium 8.8. Total bili 0.3, AST 12, ALT 18, alk phos 71. Ammonia less than 10 on the . Total protein 6.9, albumin 3.1. Other notable labs this admission: B12 level 551 and early in admission TSH 1.729 done on 07/29. [address] [address] DISCHARGE SUMMARY Name: GWYNMANUELA Room #: 528A-A [facility] IN ..#: [id number] Admission: 07/28/20 Attend Phys: Fiorella Charles DO Discharge: 08/12/20 Date of : 55 Report #: [id number] REASON FOR ADMISSION: Back in early July is as follows: A 65-year-old male, sent to us from [facility]. He had been there following a day or so of repeated seizures. He was initially stabilized on Keppra there, which should be psychotic and had exit seeking and assaultive behaviors from where he was prior to the [facility] admission. HOSPITAL COURSE: The patient was admitted to Geriatric Psychiatry Unit. The patient did have a witnessed seizure when on unit. Neurology was consulted. EEG and MRI were done. MRI was significant for suspicion of paraneoplastic encephalitis of unclear metastasis; however, extensive conversation was held by myself and the hospitalist with the patient's daughter, Hope, elected for comfort care approach. Towards the last several days of admission, the patient would have some intermittent yelling, was not physically assaultive, was only oriented to self, gross cognitive impairment, was not suicidal or homicidal on the day of discharge. PHYSICAL EXAMINATION: VITAL SIGNS: Temperature 36.1, pulse 106, respirations 19, BP 125/70, O2 sat 96%. MUSCULOSKELETAL: non- ambulatory, seated in Lizeth chair. MENTAL STATUS EXAMINATION: This is a well-developed, well-appearing fully bearded shankar colored hair male. Attention fair. Concentration impaired. Speech, normal rate, loud intermittently. Thought process largely nonlinear. Thought content: Poverty of thought with sporadic bizarre hypervigilance. He was not self-harmful, not homicidal. 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 Memory not formally tested, known to be impaired. Insight is impaired, judgment is impaired. Fund of knowledge well below average. Prognosis for this patient is poor. Hospice consultation recommended at nursing facility. He is a no code and certainly is incapacitative. FIORELLA Charles DO AHK/CARI/ANI <ELECTRONICALLY SIGNED> By: Fiorella Charles DO 08/13/20 [id number] Fiorella Charles DO /nt
== END 2020-08-12 11:45 | DRG 884 ==
LOC: SBH 19:53
PROVIDERS: Nurse Practitioner; Psychiatry & Neurology Neurology; Psychiatry & Neurology Neuromuscular Medicine; ADMIT Psychiatry & Neurology Psychiatry; ATTEND Psychiatry & Neurology Psychiatry
DX: F01.51 Vascular dementia, unspecified severity, with behavioral disturbance (principal); N17.9 Acute kidney failure, unspecified; N18.9 Chronic kidney disease, unspecified; G04.81 Other encephalitis and encephalomyelitis; C34.90 Malignant neoplasm of unspecified part of unspecified bronchus or lung; R33.9 Retention of urine, unspecified; M24.542 Contracture, left hand; M24.541 Contracture, right hand; F29 Unspecified psychosis not due to a substance or known physiological condition; I12.9 Hypertensive chronic kidney disease with stage 1 through stage 4 chronic kidney disease, or unspecified chronic kidney disease; R13.10 Dysphagia, unspecified; Z79.899 Other long term (current) drug therapy
CPT/HCPCS: 10880

== ENCOUNTER 2020-08-12 21:29 | Inpatient (IN) | payer OTHER ==
[~2020-08-12] VITALS: Ht 165.1 cm; Wt 68.6 kg
[2020-08-12 21:00] VITALS: BP 154/98
[~2020-08-12 21:29] MED LIST: DEPAKOTE125 MG PO; DEPAKOTE500 MG PO; FLOMAX0.4 MG PO; OLANZAPINE2.5 MG PO
--- NOTE | 2020-08-12 22:53 | NUR ---
BROUGHT TO THE [facility] FLOOR 5S @ 20:40 ON 08/12/20 ACCOMPANIED BY X1 STAFF FROM THE [facility] EMERGENCY DEPARTMENT AND X1 SECURITY PERSONNEL. ABLE TO STAND AND PIVOT TO TRANSFER TO BED 528B. WEIGHT 179, FACE HAS NOTED REDNESS AND DRYNESS. SKIN ON BOTTOM AND BACK IS C/D/I, SKIN ON HEELS IN DRY AND INTACT. A&OX1 TO SELF ONLY. AGITATION NOTED, REMOVES CLOTHES. STAYS IN BED FOR A SHORT PERIOD OF TIME THEN TRIES TO GET UP. TRANSFERRED TO A BLANQUITA CHAIR AND TAKEN TO THE DAY ROOM. FAMILY MEMBER CONTACTED AND SHE RETURNED THE CALL, ALLY TERRY WHO REPORS THAT SHE IS THE PATIENT'S DOPA. ALLY TERRY GAVE CONSENT TO TREAT AND GIVEN INFORMATION ABOUT SECURITY CODE, [facility] PHONE NUMBERS AND PATIENT'S CURRENT CONDITION. ORDERS OBTAINED FROM DR. LOZANO, ENTERED AND PATIENT PROVIDED MS ROXINAL AND ATIVAN FOR PAIN, RESTLESSNESS AND AGITATION, VERBALLY YELLING AND CURSING AT STAFF PROVIDING CARE. WILL CONTINUE TO MONITOR Q12 MINUTES PER UNIT PROTOCOL, SEATED IN BLANQUITA CHAIR WITH CHAIR ALARM UNDER PATIENT.
[2020-08-13 06:33] LABS: CHOLESTEROL 157 mg/dL (<200); HDL CHOLESTEROL 43 mg/dL (>40); LDL CHOLESTEROL 103 mg/dL (<100); TC:HDL 3.7 Ratio (Not establshd); TRIGLYCERIDE 58 mg/dL (<150); VLDL 12 mg/dL (<40)
[2020-08-13 06:36] LABS: SERUM ASSESSMENT Clear
--- NOTE | 2020-08-13 07:07 | NUR ---
08/13/20 06:30 Bladder scan 1000cc residual, straight cath 950cc output. Tolerated fairly well, with some objection noted.
--- NOTE | 2020-08-13 08:58 | NUR ---
Pt recently discharged from [facility] on 08/12 and has been readmitted same day. Hx NSLCA with mets, no treatment. Agitated. Wt is stable over past month at 179 lb. Requires modified diet of [facility] altered ground with nectar liquids. Eats well. Low nutrition risk
[2020-08-13 09:38] VITALS: BP 118/66
--- NOTE | 2020-08-13 13:18 | NUR ---
Sleeping in gerichair this AM but awakens easily. Alert to name only with some confused speech. Denies SI/HI. Attempting to walk at times but gait very unsteady. Attempting to eat on his own but requiring assistance, will hold empty fork/spoon to mouth at times. Breath sounds clear with strong congested cough occassionally. Reg HR auscultated. Color pink with brisk capillary refill and palpable peripheral pulses. Brief dry all AM, Bladder scan at noon showed 404 cc. Will rescan in several hours d/t order to straight cath > 450cc. Active bowel sounds over soft, rounded abdomen. Currently sleeping in chair in day room without s/o distress.
[2020-08-13 20:22] VITALS: BP 114/80
[2020-08-13 22:55] VITALS: BP 114/80
--- NOTE | 2020-08-13 23:11 | NUR ---
Alert to self, affect flat, pt took his medication without difficulty. Sitting at table in day room will assess to see when pt is ready for bed. Attempts to get up periodically currently cooperative and not hitting at staff. Bladder scan ordered q 6 hours with orders to straight cath if greated than 450. Currently not exhibiting and SI/HI/AH/VH. will continue to monitor throughout shift.
[2020-08-14 01:06] LABS: GLYCOHEMOGLOBIN (HGB A1C) 5.7 % (4.8-5.6)
--- NOTE | 2020-08-14 02:40 | NUR ---
Bladder scan done at 0100 and amount was 359 less than 450 so does not require straight cath. Noted while assisting pt to bed he seemed to be very guarded with his left leg and would become combative when touched. Assessed for pain and pt states "it won't do any good" but he agreed to pain medication. Morphine given but not able to give Ativan. Ativan wasted with second nurse as witness. Pt continues to scream and curse with some cares but not all. will continue to monitor.
[2020-08-14 09:19] VITALS: BP 123/70
[2020-08-14 10:25] VITALS: BP 123/70
--- NOTE | 2020-08-14 12:14 | NUR ---
1155 RESUMMED CARE FROM OVERNIGHT SHIFT THIS AM, PATIENT IN DAY ROOM RESTING IN THE RECLINER. PATIENT ALERT ORIENTED TO SELF ONLY PATIENTS SPEECH IS GARBBLED. PATIENT UNABLE TO TELL ME ABOUT SI/HI/AH/VH AT PRESENT TO TO COGNITION DO. PATIENTS ABDOMEN SOFT BOWEL SOUNDS PRESENT PATIENTS HAS A COUGH LUNGS CLEAR. PATIENT WAS BLADDER SCANED TWICE THE FIRST AMOUNT WAS 125 THEN ABOUT 1155; I BLADDER SCANED PATIENT HE WAS 750 CC. I STRAIGHT CATHED PATIENT AND GOT 825 CC OF URINE OUT. I GAVE PATIENT MORPHINE 20 MG AND ATIVAN 0.[address] LEZAMA CAME TO SEE PATIENT AND ASKED WHY THE PATIENT WAS BACK HERE. SHE STATES HE NEEDS TO BE ON HOSPICE I CALLED DR LOZANO TO INFORM HIM OF WHAT DR LEZAMA STATED. WILL CONTINUE TO MONITOR PATIENT FOR SAFETY AND BEHAVIORS.
[2020-08-14 19:40] VITALS: BP 88/60
[2020-08-14 23:55] VITALS: BP 110/60
--- NOTE | 2020-08-15 00:08 | NUR ---
Pt is sitting in wheelchair in dining area, appears to be sleeping. BP with automated cuff was low, BP taken manually and it was 110/60, pt will lift his head occasionally. since pt appeared sleepy PCT and nurse transferred pt to bed. Pt was bladder scanned @ 2200 and had 259 cc currently not the threshold to straight cath. Pt did not take his medication this shift since he was sleep. Pt is currently resting in bed and will continue to monitor him throughout this shift.
[2020-08-15 09:34] VITALS: BP 132/90
[2020-08-15 10:00] VITALS: BP 132/90
--- NOTE | 2020-08-15 13:58 | NUR ---
1350 RESUMMED CARE FROM OVERNIGHT SHIFT THIS AM, PATIENT IN DAY ROOM LYING QUIETLY IN BLANQUITA CHAIR. PATIENT ORIENTED TO SELF ONLY PATIENTS SPEECH IS GARBLED. PATIENT HAS RATTLING IN LUNGS ABDOMEN FIRM BOWEL SOUNDS PRESENT. PATIENT WAS BLADDER SCANNED AT 1300 HE HAD 604 CC OF URINE, I STRAIGHT CATHED PATIENT. I GOT 650 CC OF URINE OUT RESIDAL 2 CC PATIENT WAS GIVEN MORPHINE 20 MG AND ATIVAN 0.5 AT 0807 AM FOR COMFORT CARE. PATIENT HAS BEEN SLEEPING QUIETLY OF AND ON THROUGH OUT THE DAY. DR LEZAMA CAME TO SEE HOW PATIENT WAS DOING. SHE TOLD ME TO CONTINUE COMFORT MEASURES FOR PATIENT WILL CONTINUE TO MONITOR PATIENT FOR SAFETY AND BEHAVIORS.
[2020-08-15 19:21] VITALS: BP 132/84
[2020-08-15 21:00] VITALS: BP 132/84
--- NOTE | 2020-08-16 01:55 | NUR ---
[facility] CARE WAS RESUMED AT 1900. HE IS IN BED CALM AND WITH BOTH EYES CLOSED. SCHEDULED MEDS WERE ADMINISTERED AND HE SWALLOWED THEM WITH PUDDING AND WATER. HE DENIES PAINS AT THIS TIME. LUNGS ARE CLEAR, BS ACTIVE. BED IS LOW, LOCKED, ALARMED. HE CAIN, SI/AVH/ HI . Q12 MINUTES CHECK IS ON GOING. CONTINUE CARE AND MONITOR.
--- NOTE | 2020-08-16 17:13 | NUR ---
VAISHNAVI spoke with Katina at [facility], , concerning the Pt's return to [facility]. Katina confirmed the facility will accept the Pt back. VAISHNAVI did fax updated notes to Katina. Discharge is set for 08/17/2020 @ 11am. [facility] will provide transportation. Pt will continue hospice with [facility].
--- NOTE | 2020-08-16 18:39 | NUR ---
0700 ASSUMED CARE OF PATIENT, PATIENT SLEEPINBG IN BED ATTHAT TIME. PATIENT AROUSABLE BUT FALLS ASLEEP QUICKLY. PATIENT TURNED TO LEFT SIDE. AT TIMES WHEN MOVING PATIENT, PATIENT YELLS OUT THEN SETTELS DOWN FALLING ASLEEP. MEDICATION NOT GIVEN THIS AM. PATIENT LS CLEAR, BS ACTIVE, SLIGHT COUGH NOTED AT TIMES. VS 152/127, 50, 19, 99.8 82%. NO RESP DISTRESS NOTED. RECHECKED O2 WITH SATS 90%. PATIENT NOT EATING AND NO MEDICATION TAKEN. REPOSITIONED TO RIGHT SIDE. PATIENT BRIEF CHANGED WITH NO URINE NOTED TO BRIEF. BLADDER SCAN WITH 396CC. WILL REPORT OFF TO WEATHER CLERK
--- NOTE | 2020-08-17 09:09 | NUR ---
ASSUMED CARE ON 08/16/20 @ 19:15, IN [facility] IN THE DAY ROOM. COMPLIANT WITH MEDICATION, PRN MS AND LORAZEPAM INTENSOL PROVIDED. REFUSED TO ALLOW VS TO BE TAKEN. COURSE LUNG SOUNDS NOTED, HRRR, ABD N X 4Q. DRANK NECTAR THICKENED BEVERAGE X2, BUT REFUSED FOOD. BLADDER SCAN @ 02:30 1024CC, STRAIGHT CATH YEILDED 900CC OUTPUT OF REGAN URINE. OXYGEN SATS DROPPED INTO THE 65% RANGE AT THAT TIME AND WAS PUT ON 3L OF O2 VIA N/C. TOLERATED OXYGEN AND REMAINED ON OXYGEN WITH 1:1 FROM THAT POINT IN TIME ON THRU THE END OF THE SHIFT. MOVED TO THE DAY ROOM @ 0345 AND SET UP ON OXYGEN IN THE DAY ROOM. CHAIR ALARM IN PLACE. WAS ABLE TO STAND AND BEAR WEIGHT WHEN TRANSFERRING FROM BED TO [facility]AIR.
[2020-08-17] MEDS ORDERED: FLOMAX0.4 MG PO (09:33)
[2020-08-17] MEDS ORDERED: MSL20MG/ML SUBLING (09:33)
[2020-08-17] MEDS ORDERED: DEPAKOTE125 MG PO (09:34)
[2020-08-17] MEDS ORDERED: DIVALPROEX SOD500 M1 PO (09:34)
[2020-08-17] MEDS ORDERED: OLANZAPINE2.5 MG PO (09:35)
[2020-08-17] MEDS ORDERED: LORAZEPAM I2 MG/1 M2 SUBLING (09:35)
[2020-08-17 10:31] VITALS: BP 124/82
--- NOTE | 2020-08-17 14:21 | NUR ---
0700 ASSUMED CARE OF PATIENT, PATIENT SLEEPING IN GERICHAIR WITH O2 4L NC. PATIENT AWAKE AND ALERT, EATS A FEW BITES FOR BREAFAST. MEDICATION TAKEN CRUSHED WITH PUDDING. PATIENT ATTEPTING TO GET UP OUT OF CHAIR, PATIENT UNSTEADY AND LAP JENNIFER ON FASTENED IN FRONT. 1:1 PRINCIPAL ACCOUNTS CLERK AT CHAIR SIDE. PATIENT SLEEPS OFF AND ON WITH NO BEHAVIORS NOTED. O2 REMOVED X10 MIN O2 SATS 88% ON RA. O2 APPLIED @3L NC O2 SATS 96%. VS 124/82 102 20 100.3 96%. COURSE LS NOTED, BS ACTIVE. NO VOID NOTED BLADDER SCAN OBTAINED WITH 196CC. PATIENT RESTING QUIETLY IN DAYROOM. 1110 PATIENT DC'D AT VIA CART ACCOMPANIED BY TRANSPORT TEAM. BELONGING IN HAND. FACILITY NOTIFIED @ 1120 REPORT GIVEN DAUGHTER NOTIFIED AND RECIEVED PHONE CONSENT.
--- NOTE | 2020-08-19 22:47 | D ---
[facility] [place] [address] [address] DISCHARGE SUMMARY Name: MANUELA PASCAL Room #: 528B-B DIS IN M.R.#: [id number] Admission: 08/12/20 Attend Phys: Fiorella Charles DO Discharge: 08/17/20 Date of : 55 Report #: [id number] THIS REPORT FOR: cc: FAM - Family physician unknown FAM - Family physician unknown Fiorella Charles DO ~ DOC #: [id number] FIORELLA Charles DO DATE OF SERVICE: 08/17/2020 INPATIENT PSYCHIATRIC DISCHARGE SUMMARY ATTENDING PSYCHIATRIST: Fiorella Charles DO IT TECHNICAL ARCHITECT: At time of discharge, Dr. Cardona. 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 ADDITIONAL DIAGNOSES: Recurrent seizure concern, hypertension, acute on chronic renal failure, dysphagia, most recently hypoxic respiratory failure due to a small cell lung cancer. The patient is discharging to [facility] for end of life care. DISCHARGE MEDICATIONS: Tamsulosin 0.4 mg oral daily for BPH, morphine 20 mg sublingual every 6 hours p.r.n. for pain levels severe, Depakote [address] b[address]d. for mood stabilization, olanzapine 2.5 mg oral twice daily for psychosis, Lorazepam Intensol 0.5 mg sublingual q. 4 hours p.r.n. for agitation. Did receive a call from the [facility] pharmacy asking for 30 mL supply due to all their bottles are furnished and I authorized that. The patient really is not ambulatory at this point, he was on supplemental oxygen to keep sats 90% or greater. Diet is mechanical altered ground nectar thick liquids. The patient did receive hospice care through [facility] and medical care by the facility. REASON FOR ADMISSION: The patient bounced back on evening of 08/12/2020, he had been discharged that day from our unit. There was a report that he had been throwing things and has been pacing with irrelevant documentation to substantiate this, but due to circumstances, let him stay and we readmitted him for safety. HOSPITAL COURSE: On this admission, resume the Depakote, I added olanzapine. The patient had some intensive periods of lack of activity in bed, respiratory failure only manifested the last 24 hours or so. [facility] [address] [place] [address] DISCHARGE SUMMARY Name: MANUELA PASCAL Room #: 528B-B [facility] IN .R.#: [id number] Admission: 08/12/20 Attend Phys: Fiorella Charles, Discharge: 08/17/20 Date of : 55 Report #: [id number] CONDITION AT DISCHARGE: Alert, but with respiratory failure, showing signs of terminal effects from his cancer. PHYSICAL EXAMINATION: VITAL SIGNS: On the date of discharge: Temperature 37.9, pulse 102, respirations 20, O2 sat was 100%, I believe that was on a couple of liters. We have tried to modify oxygen in the morning of discharge and he sat 87%, BP 124/82. MUSCULOSKELETAL: Nonambulatory, has a waters, unkempt in a Lizeth chair. MENTAL STATUS EXAMINATION: This is a well-developed, ill-appearing, frail male appearing older than stated age. Attention: Concentration limited. Speech: Slow rate, normal volume. Thought process: Linear, but very limited. Thought content: Poverty of thought. No SI, no HI, no auditory, visual, or tactile hallucinations. Mood and affect: Actually euthymic, congruent. Insight and judgment: Impaired. Fund of knowledge: Well below average. Prognosis for this patient is very poor, likely , in the next couple of weeks. FIORELLA Charles DO [facility]/JOSE L/DOMINICK <ELECTRONICALLY SIGNED> By: Fiorella Charles DO 08/19/20 [id number] Fiorella Charles DO /nt
== END 2020-08-17 11:00 | DRG 884 ==
LOC: SBH 21:29
PROVIDERS: ADMIT Psychiatry & Neurology Psychiatry; ATTEND Psychiatry & Neurology Psychiatry
DX: F01.51 Vascular dementia, unspecified severity, with behavioral disturbance (principal); N17.9 Acute kidney failure, unspecified; N18.9 Chronic kidney disease, unspecified; F10.231 Alcohol dependence with withdrawal delirium; G04.81 Other encephalitis and encephalomyelitis; J96.91 Respiratory failure, unspecified with hypoxia; C34.90 Malignant neoplasm of unspecified part of unspecified bronchus or lung; I12.9 Hypertensive chronic kidney disease with stage 1 through stage 4 chronic kidney disease, or unspecified chronic kidney disease; R13.10 Dysphagia, unspecified; M24.542 Contracture, left hand; M24.541 Contracture, right hand
CPT/HCPCS: 10880